=== PATIENT | male | born 1995 | race Two or more races ===

== ENCOUNTER 2017-05-06 11:25 | Emergency (ER) | payer MEDICAID ==
[~2017-05-06] VITALS: Ht 172.7 cm; Wt 135.6 kg
[2017-05-06 11:40] VITALS: BP 132/73
== END 2017-05-06 14:25 | disposition home or self-care (01) ==
LOC: ER 11:25
DX: S39.012A Strain of muscle, fascia and tendon of lower back, initial encounter (principal); V19.9XXA Pedal cyclist (driver) (passenger) injured in unspecified traffic accident, initial encounter; Y93.55 Activity, bike riding; Y99.8 Other external cause status; Y92.89 Other specified places as the place of occurrence of the external cause
CPT/HCPCS: 72100

== ENCOUNTER 2024-08-29 19:19 | Emergency (ER) | payer MEDICAID, OTHER ==
[~2024-08-29] VITALS: Ht 177.8 cm; Wt 95.0 kg
[2024-08-29 19:35] VITALS: BP 132/72; PULSE 96; RESP 20; TEMP 99.2; O2SAT 98
[2024-08-29] MEDS ORDERED: IBUP-1456 PO (21:05)
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
[2024-08-29] MEDS: IBUPROFEN 800 MG TAB PO ONE (21:25)
--- NOTE | 2024-08-29 21:26 | DVH ---
CLINICAL INDICATION: right tib/fib pain TECHNIQUE: 3 radiographic views of the right tibia and fibula were obtained. Comparison: None FINDINGS/IMPRESSION: There is no evidence of acute fracture or dislocation. The visualized joint space is well maintained. The alignment is anatomical. There is no radiopaque foreign body.
== END 2024-08-29 21:40 | disposition home or self-care (01) ==
LOC: ER 19:19 → EDBD 19:19 → ER 21:40
DX: S80.11XA Contusion of right lower leg, initial encounter (principal); V49.88XA Car occupant (driver) (passenger) injured in other specified transport accidents, initial encounter; Y93.I9 Activity, other involving external motion; Y92.488 Other paved roadways as the place of occurrence of the external cause; Y99.8 Other external cause status
CPT/HCPCS: 73590